=== PATIENT | female | born 1995 | race Hispanic/Latino ===

== ENCOUNTER 2022-01-29 14:48 | Emergency (ER) | payer MEDICAID ==
[~2022-01-29] VITALS: Ht 160 cm; Wt 108.4 kg
[2022-01-29] MEDS ORDERED: IBUPROFEN 600 MG TABLET PO ONE (15:30)
[2022-01-29 16:56] VITALS: BP 120/74
== END 2022-01-29 17:07 | disposition home or self-care (01) ==
LOC: EDH 14:48
DX: S59.901A Unspecified injury of right elbow, initial encounter (principal); Z90.49 Acquired absence of other specified parts of digestive tract; W19.XXXA Unspecified fall, initial encounter; Y93.89 Activity, other specified; Y92.89 Other specified places as the place of occurrence of the external cause; Y99.8 Other external cause status
CPT/HCPCS: 73080